=== PATIENT | male | born 1975 | race Caucasian/White ===

== ENCOUNTER 2019-06-23 17:57 | Inpatient (IN) ==
[2019-06-23] MEDS ORDERED: ATIVAN ONE (18:00)
[2019-06-23] MEDS ORDERED: ATIVAN IV ONE (18:12)
[2019-06-23 18:27] LABS: BASO# 0.11 X1000 (0.0-0.2); BASO% 0.9 % (0.0-0.8); EOS# 0.26 X1000 (0.0-0.7); EOS% 2.2 % (0.0-10.0); HEMATOCRIT 49.5 % (42.0-52.0); IMM GRAN# 0.01 X1000 (0.0-0.04); IMM GRAN% 0.1 % (0.0-0.5); LYMPH# 4.89 X1000 (1.2-3.4); LYMPH% 41.8 % (20.5-51.1); MCHC 34.3 g/dL (33-37); MCV 84.5 FL (81-99); MONO# 1.35 X1000 (0.11-0.59); MONO% 11.5 % (1.7-9.3); MPV 10.5 FL (7.4-10.4); NEUT# 5.08 X1000 (1.4-6.5); NEUT% 43.5 % (42.2-75.2); PLT 323 X1000 (130-400); RBC 5.86 XMIL (4.7-6.1); RDW 13.5 % (11.5-14.5)
[2019-06-23 18:45] LABS: ALBUMIN 5.4 g/dL (3.5-5.0); CALCIUM 10.1 mg/dL (8.8-10.2); CREATININE 1.5 mg/dL (0.7-1.2); POTASSIUM 3.4 mmol/L (3.5-5.1); TOTAL BILIRUBIN 0.5 mg/dL (0.20-1.00); TOTAL PROTEIN 9.1 g/dL (6.3-8.3)
--- NOTE | 2019-06-23 18:50 | Diag Imaging Result Doc PS360 ---
EXAM: CHEST-PORTABLE 06/23/2019 HISTORY: seizure TECHNIQUE: Erect AP portable chest at 1734 COMMENT: The inspiration is suboptimal. There is ill-defined opacity in the right lower lobe. IMPRESSION: Poor inspiration. Questionable basilar opacity on the right. Electronically signed by Juan Bar 06/23/2019 6:47 PM
--- NOTE | 2019-06-23 18:55 | PROVIDER DOCUMENTATION ---
This chart was entered by Vika Foreman Scribe, acting as scribe for Flavio James MD. HPI-Neurological Disorder - History of Present Illness-Neuro Severity: reports: moderate Onset/Duration: reports: just prior to arrival Timing: reports: intermittent Context: reports: seizure activity Character of Altered Mental Status: reports: N/A Any recent trauma/injury?: reports: none New weakness or altered sensation location:: reports: none Cognitive Baseline: alert, oriented x3 Gait Baseline: other (rightsided paralysis) Associated Symptoms: reports: seizures Similar Symptoms Previously?: Yes Recently seen or treated by another doctor?: No - Seizure First time to have a seizure?: No Witnessed seizure?: Yes Episode Frequency: rare episodes Status Epilepticus: No Preceding symptoms/context:: active Character of Seizure: reports: lost consciousness, generalized shaking all over, staring Post-ictal Symptoms: reports: none Seizure related injury: none <Flavio James - Last Filed: 06/23/19 18:55> <Jamal Chew - Last Filed: 06/23/19 20:49> - General Chief Complaint: Seizure Stated Complaint: SEIZURE Time Seen by Provider: 06/23/19 18:01 Allergies/Adverse Reactions: Patient Allergies Allergy/AdvReac Type Severity Reaction Status Date / Time No Known Allergies Allergy Verified 06/23/19 18:48 Home Medications: Home Medication List Medication Instructions Recorded Confirmed Last Taken Type Clonazepam [Klonopin] 1 mg PO QHS 05/14/12 06/23/19 09/27/16 History Lamotrigine [Lamictal] 200 mg PO DAILY 05/14/12 06/23/19 09/27/16 History Levetiracetam [Keppra] 750 mg PO QHS #2 tab 07/23/18 06/23/19 Unknown Rx - History of Present Illness-Neuro Nature of Presenting Problem: pt is a 44 yr old male presenting with complaint of seizure onset while eating [place] food tonight. pt admits long hx of seizures, no recent seizures, pt takes Lamictal, Keppra and Klonipin daily. pt also hx of right side paralysis. no injury associated with seizure, no other complaint seizure witnessed while in room for exam, pt had left gaze prior to tonic-clonic activity. (Flavio James) Review of Systems - Adult - REVIEW OF SYSTEMS - ADULT Constitutional: denies: chills, fever Eyes: denies: blurred vision, double vision Ears, Nose, Mouth & Throat: reports: no symptoms reported Cardiovascular: reports: no symptoms reported Respiratory: denies: cough, shortness of breath, wheezing Gastrointestinal: denies: nausea, vomiting Genitourinary: reports: no symptoms reported Musculoskeletal: reports: no symptoms reported Integumentary: reports: no symptoms reported Neurological: reports: seizure. denies: dizziness/vertigo, headache/migraines, syncope Psychiatric: reports: no symptoms reported Endocrine: reports: no symptoms reported Hematologic/Lymphatic: reports: no symptoms reported Allergic/Immunologic: reports: no symptoms reported All Other Systems: Reviewed and Negative <Flavio James - Last Filed: 06/23/19 18:55> Past History - Adult - PAST MEDICAL HISTORY-ADULT Review of Records: reports: Old Records Reviewed, Nursing Assessment Review, Medications Reviewed, Social history reviewed & non-contributory. Major Childhood Illnesses: reports: Polio Cardiovascular: reports: angina, blood clots (Saddle PE) Respiratory: reports: denies history Gastrointestinal: reports: denies history Obstetrical/Gynecological: reports: denies history Genitourinary: reports: denies history Musculoskeletal: reports: other (RUE/RLE weakness with abnormal gait) Neurological: reports: CVA, stroke deficits, Seizures/Epilepsy, other (CP) Endocrine/Immune: reports: denies history Other Conditions: reports: denies history - PRIOR SURGERIES/PROCEDURES Surgical/Procedure History: reports: orthopedic (extremity) - IMMUNIZATION STATUS Childhood Immunizations: See Nurse Assessment Flu Vaccine: See Nurse Assessment - FAMILY HISTORY Family History: reviewed, not pertinent - SOCIAL HISTORY Smoking: quit greater than 1 year Substance Use: denies Living Situation: family <Flavio James - Last Filed: 06/23/19 18:55> Physical Exam- Neurological - Physical Exam-Neuro Initial Vital Signs Reviewed: Yes General Appearance: alert, no apparent distress Eye Exam: bilateral eye: normal inspection, PERRL HENMT: normocephalic/atraumatic, moist mucous membranes Head Injury: no evidence of injury Neck: non-tender, full range of motion, supple, normal inspection Respiratory: lungs clear, normal breath sounds Cardiovascular: normal peripheral pulses, regular rate, rhythm, no edema Abdominal Exam: normal bowel sounds, non tender, soft Lymphatic: no adenopathy Extremity: normal range of motion, 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 Exam: normal hearing, normal speech, PERRL Motor/Sensory: weak motor strength RUE, weak motor strength RLE Neurologic: motor weakness Integumentary: normal color, normal turgor, warm/dry Psych/Mental Status: normal mood/affect - Glascow Coma Scale Best Eye Response: (4) open spontaneously Best Verbal Response: (5) oriented Best Motor Response: (6) obeys commands Total Glascow Score: 15 <Flavio James - Last Filed: 06/23/19 18:55> Progress - PLAN OF CARE/RESULTS Result Diagrams: 06/23/19 18:04 06/23/19 18:04 - REASSESSMENT Reassessment #1 Time Reassessed: 19:42 Status: improving (Seen and examined by me. Case discussed with Dr. James at shift change. Patient states since being on the current regimen of Lamictal and Keppra, today was his first seizure in about 1.5 years. He is still somewhat tacypneic and HR is 104, will check ABG. Awaiting on UA) - XRAY 1 XRAY Study: Chest Impression: Abnormal, See EMR Report ( EXAM: CHEST-PORTABLE 06/23/2019 HISTORY: seizure TECHNIQUE: Erect AP portable chest at 1734 COMMENT: The inspiration is suboptimal. There is ill-defined opacity in the right lower lobe. IMPRESSION: Poor inspiration. Questionable basilar opacity on the right. Electronically signed by Juan Bar 06/23/2019 6:47 PM 06/23/191846 Interpreting Physician: Juan Bar MD Dictated Date/Time: 06/23/191845 cc: Flavio James MD; None,PCP) - CONSULTS/PCP/HOSPITALIST Notification #1 *Consult/PCP/Hospitalist*: [place] Time Discussed: 20:47 Reason/Comments: admit for obs, increase Keppra to 1000 BID Consult Disposition: Admit <Jamal Chew - Last Filed: 06/23/19 20:49> - PLAN OF CARE/RESULTS Progress/Plan/Lab Results: Vital Signs - 8 hr 06/23/19 18:01 Temperature 98.7 F Pulse Rate 124 H Respiratory Rate 33 H Blood Pressure 139/85 O2 Sat by Pulse Oximetry 95 Laboratory Results - last 24 hr 06/23/19 06/23/19 06/23/19 18:04 18:04 18:04 WBC 11.70 H RBC 5.86 Hgb 17.0 Hct 49.5 MCV 84.5 MCH 29.0 MCHC 34.3 RDW Std Deviation 13.5 Plt Count 323 MPV 10.5 H Immature Gran % (Auto) 0.1 Neut % (Auto) 43.5 Lymph % (Auto) 41.8 Emmet % (Auto) 11.5 H Eos % (Auto) 2.2 Baso % (Auto) 0.9 H Immature Gran # (Auto) 0.01 Neut # (Auto) 5.08 Lymph # (Auto) 4.89 H Emmet # (Auto) 1.35 H Eos # (Auto) 0.26 Baso # (Auto) 0.11 Specimen Type Sample Site pH pCO2 pO2 HCO3 Base Excess Oxyhemoglobin ABG O2 Sat (Calculated) ABG O2 Saturation ABG Carboxyhemoglobin ABG Methemoglobin Total Hemoglobin Lactate Liter Flow Blood Gas Modality Sodium 140 Potassium 3.4 L Chloride 93 L Carbon Dioxide 7 L Anion Gap 40 BUN 14 Creatinine 1.5 H Estimated GFR/1.73 m2 51 BUN/Creatinine Ratio 9 Glucose 117 H Calculated Osmolality 281 Calcium 10.1 Magnesium Total Bilirubin 0.50 AST 30 ALT 36 Alkaline Phosphatase 92 Creatine Kinase 126 Troponin T High Sens Total Protein 9.1 H Albumin 5.4 H Globulin 4.0 Albumin/Globulin Ratio 1.0 Urine Source Urine Color Urine Turbidity Urine pH Ur Specific [place] Urine Protein Ur Glucose (Stick) Ur Ketones (Stick) Urine Blood Urine Nitrite Urine Bilirubin Urobilinogen Dipstick Urine Leukocytes Urine Opiates Screen Ur Oxycodone Screen Urine Methadone Screen U Propoxyphene Qual Ur Barbituates Screen Ur Tricyclics Screen Ur Phencyclidine Scrn Ur Amphetamines Screen U Methamphetamines Scrn U Benzodiazepines Scrn Urine Cocaine Screen U Cannabinoids Screen 06/23/19 06/23/19 06/23/19 18:35 19:35 19:35 WBC RBC Hgb Hct MCV MCH MCHC RDW Std Deviation Plt Count MPV Immature Gran % (Auto) Neut % (Auto) Lymph % (Auto) Emmet % (Auto) Eos % (Auto) Baso % (Auto) Immature Gran # (Auto) Neut # (Auto) Lymph # (Auto) Emmet # (Auto) Eos # (Auto) Baso # (Auto) Specimen Type Sample Site pH pCO2 pO2 HCO3 Base Excess Oxyhemoglobin ABG O2 Sat (Calculated) ABG O2 Saturation ABG Carboxyhemoglobin ABG Methemoglobin Total Hemoglobin Lactate Liter Flow Blood Gas Modality Sodium Potassium Chloride Carbon Dioxide Anion Gap BUN Creatinine Estimated GFR/1.73 m2 BUN/Creatinine Ratio Glucose Calculated Osmolality Calcium Magnesium 2.6 Total Bilirubin AST ALT Alkaline Phosphatase Creatine Kinase 126 Troponin T High Sens 7 Total Protein Albumin Globulin Albumin/Globulin Ratio Urine Source Urine Color Urine Turbidity Urine pH Ur Specific [place] Urine Protein Ur Glucose (Stick) Ur Ketones (Stick) Urine Blood Urine Nitrite Urine Bilirubin Urobilinogen Dipstick Urine Leukocytes Urine Opiates Screen Ur Oxycodone Screen Urine Methadone Screen U Propoxyphene Qual Ur Barbituates Screen Ur Tricyclics Screen Ur Phencyclidine Scrn Ur Amphetamines Screen U Methamphetamines Scrn U Benzodiazepines Scrn Urine Cocaine Screen U Cannabinoids Screen 06/23/19 06/23/19 06/23/19 19:40 19:40 20:03 WBC RBC Hgb Hct MCV MCH MCHC RDW Std Deviation Plt Count MPV Immature Gran % (Auto) Neut % (Auto) Lymph % (Auto) Emmet % (Auto) Eos % (Auto) Baso % (Auto) Immature Gran # (Auto) Neut # (Auto) Lymph # (Auto) Emmet # (Auto) Eos # (Auto) Baso # (Auto) Specimen Type ARTERIAL Sample Site R BRACHIAL pH 7.32 L pCO2 29 L pO2 80 HCO3 17.3 L Base Excess -9.6 L Oxyhemoglobin 94.4 L ABG O2 Sat (Calculated) 20.6 ABG O2 Saturation 96.8 ABG Carboxyhemoglobin 1.80 ABG Methemoglobin 0.8 Total Hemoglobin 15.5 Lactate 7.20 H* Liter Flow 5.0 Blood Gas Modality CANNULA Sodium Potassium Chloride Carbon Dioxide Anion Gap BUN Creatinine Estimated GFR/1.73 m2 BUN/Creatinine Ratio Glucose Calculated Osmolality Calcium Magnesium Total Bilirubin AST ALT Alkaline Phosphatase Creatine Kinase Troponin T High Sens Total Protein Albumin Globulin Albumin/Globulin Ratio Urine Source CLEAN CATCH Urine Color YELLOW Urine Turbidity CLEAR Urine pH 5.5 Ur Specific [place] 1.019 Urine Protein 70 A Ur Glucose (Stick) NEGATIVE Ur Ketones (Stick) TRACE A Urine Blood MODERATE A Urine Nitrite NEGATIVE Urine Bilirubin NEGATIVE Urobilinogen Dipstick NORMAL Urine Leukocytes NEGATIVE Urine Opiates Screen NONE DETECTED Ur Oxycodone Screen NONE DETECTED Urine Methadone Screen NONE DETECTED U Propoxyphene Qual NONE DETECTED Ur Barbituates Screen NONE DETECTED Ur Tricyclics Screen NONE DETECTED Ur Phencyclidine Scrn NONE DETECTED Ur Amphetamines Screen NONE DETECTED U Methamphetamines Scrn NONE DETECTED U Benzodiazepines Scrn NONE DETECTED Urine Cocaine Screen NONE DETECTED U Cannabinoids Screen NONE DETECTED Orders Category Date Time Status CHEST-PORTABLE [RAD] Stat Exams 06/23/19 18:[address] HEAD W/O CONTRAST [CT] Stat Exams 06/23/19 20:45 Ordered ABG [RESP] Routine Lab 06/23/19 20:03 Completed CBC WITH DIFF [HEME] Stat Lab 06/23/19 18:04 Completed CK PROFILE [SP CHEM] Stat Lab 06/23/19 18:04 Completed CK TOTAL [CHEM] Stat Lab 06/23/19 19:35 Completed COMPREHENSIVE METABOLIC PANEL [CHEM] Stat Lab 06/23/19 18:04 Completed KEPPRA [BUSTOS] Stat Lab 06/23/19 18:04 Received LAMICTAL [BUSTOS] Stat Lab 06/23/19 18:04 Received MAGNESIUM [CHEM] Stat Lab 06/23/19 19:35 Completed TROPONIN T HIGH SENSITIVITY Stat Lab 06/23/19 18:35 Completed URINALYSIS DIPSTICK ONLY [URINALYSIS] Stat Lab 06/23/19 19:40 Completed URINE DRUG SCREEN PL Stat Lab 06/23/19 19:40 Completed 0.9% Sodium Chloride Inj [Ns] 1,000 ml Med 06/23/19 19:36 Discontinued IV 999 mls/hr Levetiracetam [Keppra] 500 mg Med 06/23/19 20:44 Ordered 0.9% Sodium Chloride Inj [Ns] 100 ml IV NOW Lorazepam [Ativan] Med 06/23/19 18:00 Discontinued 2 mg .ROUTE .STK-MED ONE Lorazepam [Ativan] Med 06/23/19 18:12 Discontinued 2 mg IV NOW ONE Departure <Flavio James - Last Filed: 06/23/19 18:55> - Departure Date of Disposition Decision: 06/23/19 Time of Disposition Decision: 20:48 Certified Medical Emergency: Emergent - Critical Care Note This patient required my direct & personal management of CC.: No <Jamal Chew - Last Filed: 06/23/19 20:49> - Departure DIAGNOSIS: Generalized tonic-clonic seizure, Metabolic acidosis with increased anion gap and accumulation of organic acids Disposition: ADMITTED INPATIENT 09 Condition: Fair Referrals and Follow-Ups: None,PCP [Primary Care Provider] - Attestation - Physician/ PRAKASH Attestation Patient care was provided by Advanced Practice Provider:: No The physician spent face to face time with patient:: Yes Advanced Practice Provider documentation review:: Supervising physician onsite and consulted in the evaluation and care of this patient. The physician did have a face to face encounter with the patient. <Jamal Chew - Last Filed: 06/23/19 20:49> This chart was documented by the indicated scribe, (Vika Foreman, Jayy) and accurately reflects the services I performed and decisions made by me, Flavio James MD, as attested by the provider's signature.
[2019-06-23] MEDS ORDERED: NS 1,000 ML IV ONE ×2 (19:36→21:00)
[2019-06-23 19:46] LABS: URINE SOURCE CLEAN CATCH
[2019-06-23 20:01] LABS: BILIRUBIN URINE NEGATIVE (NEGATIVE); BLOOD URINE MODERATE (NEGATIVE); COLOR YELLOW; GLUCOSE URINE NEGATIVE (NEGATIVE); KETONE URINE TRACE mg/dL (NEGATIVE); LEUKOCYTES URINE NEGATIVE (NEGATIVE); NITRITE URINE NEGATIVE (NEGATIVE); PH URINE 5.5; PROTEIN URINE 70 mg/dL (NEGATIVE); SP GRAVITY URINE 1.019; TURBIDITY URINE CLEAR (CLEAR); UROBILINOGEN URINE NORMAL (NORMAL)
[2019-06-23 20:02] LABS: UR AMPHETAMINES QUAL NONE DETECTED (NONE DETECT); UR BARBITUATES QUAL NONE DETECTED (NONE DETECT); UR BENZODIAZEPIN QUAL NONE DETECTED (NONE DETECT); UR CANNABINOIDS QUAL NONE DETECTED (NONE DETECT); UR COCAINE QUAL NONE DETECTED (NONE DETECT); UR METHADONE QUAL NONE DETECTED (NONE DETECT); UR METHAMPHETAMINE QUAL NONE DETECTED (NONE DETECT); UR OPIATES QUAL NONE DETECTED (NONE DETECT); UR OXYCODONE QUAL NONE DETECTED (NONE DETECT); UR PCP QUAL NONE DETECTED (NONE DETECT); UR PROPOXYPHENE QUAL NONE DETECTED (NONE DETECT); UR TCA QUAL NONE DETECTED (NONE DETECT)
[2019-06-23 20:19] LABS: BE -9.6 mmoll (-3.0-3.0); BLOOD TYPE ARTERIAL; HCO3-(ACT) 17.3 mmoll (20.0-26.0); METHB 0.8 % (0.0-1.5); O2(CT) 20.6 mL/dL (15.0-23.0); O2HB 94.4 % (95.0-99.0); PCO2(98.6) 29 mmHg (35-45); PO2(98.6) 80 mmHg (60-100); SAMPLE BLOOD; SAO2 96.8 % (95.0-100.0); THB 15.5 g/dL (11.5-17.4); pH(98.6) 7.32 (7.35-7.45)
[2019-06-23 20:23] LABS: MODALITY CANNULA
[2019-06-23] MEDS ORDERED: KEPPRA 500 MG in NS 100 ML IV ONE (20:44)
[2019-06-23] MEDS ORDERED: TYLENOL PO PRN (21:00)
--- NOTE | 2019-06-23 21:12 | Diag Imaging Result Doc PS360 ---
EXAM: CT HEAD W/O CONTRAST 06/23/2019 HISTORY: seizure, head injury TECHNIQUE: This exam was performed using automated exposure control, adjustment of mA or kV according to patient size, and/or use of iterative reconstruction technique. COMMENT: There is encephalomalacia with ex vacuo enlargement of the left lateral ventricle. This was also the case at the time the previous examination of 11/19/2018. There is no evidence of bleed or abnormal extra-axial fluid collection. There are some calcifications present in the right centrum semiovale ovale region. This may be due to congenital infection. The visualized paranasal sinuses are clear. The calvarium is intact. IMPRESSION: Stable CT of the head. Electronically signed by Juan Bar 06/23/2019 9:09 PM
[2019-06-23] MEDS ORDERED: ZOFRAN ODT PO PRN (21:17)
[2019-06-23 23:06] LABS: INR 1.01; PROTIME 13.8 Seconds (11.0-16.0); PTT 23.6 Seconds (22.3-41.8)
[2019-06-23 23:34] LABS: CK INDEX 2.1 (0.0-2.5); CK-MB 4.4 ng/mL (0.0-5.0)
[2019-06-24 02:46] LABS: CK INDEX 1.7 (0.0-2.5); CK-MB 5.89 ng/mL (0.0-5.0)
[2019-06-24 05:15] LABS: BASO# 0.02 X1000 (0.0-0.2); BASO% 0.2 % (0.0-0.8); EOS# 0.04 X1000 (0.0-0.7); EOS% 0.4 % (0.0-10.0); HEMATOCRIT 40.6 % (42.0-52.0); IMM GRAN# 0.01 X1000 (0.0-0.04); IMM GRAN% 0.1 % (0.0-0.5); LYMPH# 1.28 X1000 (1.2-3.4); LYMPH% 13.3 % (20.5-51.1); MCHC 34.7 g/dL (33-37); MCV 83.5 FL (81-99); MONO# 1.21 X1000 (0.11-0.59); MONO% 12.6 % (1.7-9.3); NEUT# 7.03 X1000 (1.4-6.5); NEUT% 73.4 % (42.2-75.2); PLT 203 X1000 (130-400); RBC 4.86 XMIL (4.7-6.1); RDW 13.3 % (11.5-14.5); WBC 9.59 X1000 (4.8-10.8)
[2019-06-24 05:24] LABS: HEMOGLOBIN 14.1 g/dL (14.0-18.0)
[2019-06-24 05:36] LABS: CALCIUM 8.5 mg/dL (8.8-10.2); CREATININE 1.3 mg/dL (0.7-1.2); POTASSIUM 3.8 mmol/L (3.5-5.1); TOTAL BILIRUBIN 0.6 mg/dL (0.20-1.00); TOTAL PROTEIN 6.7 g/dL (6.3-8.3)
[2019-06-24] MEDS: KEPPRA PO SCH ×2 (09:38→20:12)
[2019-06-24] MEDS: LAMICTAL PO SCH (09:39)
--- NOTE | 2019-06-24 15:00 | HISTORY AND PHYSICAL ---
CHIEF COMPLAINT: Seizure. HISTORY OF PRESENT ILLNESS: This is a 44-year-old male with chronic seizure disorder, epilepsy since a child. He has not had generalized tonoclonic seizures for many, many years. 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 He has been on Lamictal and Keppra and Klonopin. Again, had a seizure around 4:30, but when he came into the ER it looks like he had another seizure around 6:00. Apparently, this was witnessed. Left gaze and then tonic colonic. He says he has not missed any doses of medications. He had lactic acidosis which is not unexpected. Creatinine was a little bit elevated. Troponin was a little bit elevated too. He did not have any chest pain or anything to that effect. In any case, the patient was admitted for seizures uncontrolled. PAST MEDICAL HISTORY: Again, seizure disorder and that is it. No medical problems. No cardiac problems. PAST SURGICAL HISTORY: He has had vein stripping in his leg. FAMILY HISTORY: Father had diabetes. SOCIAL HISTORY: No tobacco or ethanol. 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 He was actually coming home from work when this happened, but he was not driving. His drives. ALLERGIES: No known drug allergies. MEDICATIONS: He is on Lamictal 200 daily and 750 daily of Keppra and Klonopin 1 b.i.d. REVIEW OF SYSTEMS: Negative for chest pain, palpitation, shortness of breath. No nausea, vomiting, diarrhea. No dysuria. No bleeding, rectal bleeding, GI bleeding. Otherwise, negative times a 10-point review of systems. PHYSICAL EXAMINATION: VITAL SIGNS: Blood pressure 101/75, heart rate 64, respiratory rate 20, temperature 98.1 degrees, 100% on 2 L. CARDIOVASCULAR: Regular rate and rhythm. PULMONARY: Bilateral breath sounds. Clear to auscultation. GASTROINTESTINAL: Soft, nontender, nondistended. Bowel sounds were positive. NEUROLOGICAL: He did have some focal weakness on his right upper and lower extremities, but it was still 4/5. There was no pronator drift. There was no facial asymmetry. Extraocular movements were intact. Basically, cranial nerves II through XII were intact. LABORATORY DATA: Initial white count 11, hemoglobin and hematocrit 17 and 49, platelets 323,000. The pH 7.32, pCO2 of 29, PaO2 of 80. Lactate 7.2, creatinine 1.[address] with [address] baseline[address] Head CT was negative. Chest x-ray was negative. No EKG was obtained. PROBLEM LIST: 1. A 44-year-old male with history of seizure disorder presenting with seizure. We will increase his Keppra to 1 g daily from 750. He seems to have been controlled. He got an extra dose yesterday. We have checked his Lamictal and Keppra levels. However, that probably is not going to come back any time soon unfortunately, but we will follow up on those levels. He sees Dr. Henley in [facility]. We will make sure he has followup from that standpoint. 2. Elevated troponin. Really of undetermined significance. Possibly related to rhabdomyolysis seizure, but that is unusual. I will attempt to get a Cardiology consult and we will see. Again, he is asymptomatic. We cannot pursue an echocardiogram. It is unavailable at this time. But he will need close followup. 3. Acute kidney injury. We will continue hydration and follow. I will probably monitor him 1 more day with the other issues besides the seizure disorder. This is a service admission and it not clear that he has a PCP besides his neurologist. cc: Mateo Kunz MD
[2019-06-24] MEDS: NS 1,000 ML IV SCH (15:36)
--- NOTE | 2019-06-24 16:02 | EKG Report ---
Test Performed on : 06/24/2019 2:54:42 PM Test Reason : elevated troponin Blood Pressure : / mmHG Vent. Rate : 073 BPM Atrial Rate : 073 BPM P-R Int : 148 ms QRS Dur : 080 ms QT Int : 388 ms P-R-T Axes : 050 -11 053 degrees QTc Int : 427 ms Normal sinus rhythm. Normal ECG When compared with ECG of 15-AUG-2015 22:19, Minimal criteria for Anterior infarct are no longer present T wave amplitude has increased in Anterior leads Unconfirmed Result
--- NOTE | 2019-06-24 16:21 | Diag Imaging Result Doc PS360 ---
EXAM: CHEST-2 VIEWS 06/24/2019 HISTORY: hypoxia TECHNIQUE: PA and lateral chest COMMENT: The inspiration is better than on 06/23/2019. There is platelike atelectasis in the left lower lobe. The heart size and pulmonary vascularity are within normal limits. IMPRESSION: Subsegmental atelectasis. Electronically signed by Juan Bar 06/24/2019 4:19 PM
[2019-06-24 16:54] LABS: CK INDEX 1.2 (0.0-2.5); CK-MB 5.95 ng/mL (0.0-5.0)
[2019-06-25] MEDS: NS 1,000 ML IV SCH ×3 (00:15→14:20)
[2019-06-25 04:59] LABS: BASO# 0.02 X1000 (0.0-0.2); BASO% 0.2 % (0.0-0.8); EOS# 0.09 X1000 (0.0-0.7); HEMATOCRIT 40.3 % (42.0-52.0); HEMOGLOBIN 14.1 g/dL (14.0-18.0); IMM GRAN# 0.01 X1000 (0.0-0.04); IMM GRAN% 0.1 % (0.0-0.5); LYMPH# 1.72 X1000 (1.2-3.4); LYMPH% 19.8 % (20.5-51.1); MCH 29.3 PG (27-31); MCV 83.8 FL (81-99); MONO# 0.96 X1000 (0.11-0.59); MONO% 11.1 % (1.7-9.3); MPV 9.8 FL (7.4-10.4); NEUT# 5.87 X1000 (1.4-6.5); NEUT% 67.8 % (42.2-75.2); PLT 193 X1000 (130-400); RBC 4.81 XMIL (4.7-6.1); RDW 13.5 % (11.5-14.5); WBC 8.67 X1000 (4.8-10.8)
[2019-06-25 05:20] LABS: ALBUMIN 3.7 g/dL (3.5-5.0); CALCIUM 8.4 mg/dL (8.8-10.2); CREATININE 1.3 mg/dL (0.7-1.2); POTASSIUM 3.6 mmol/L (3.5-5.1); TOTAL BILIRUBIN 0.7 mg/dL (0.20-1.00); TOTAL PROTEIN 6.3 g/dL (6.3-8.3)
[2019-06-25] MEDS: KEPPRA PO SCH (08:24)
[2019-06-25] MEDS: LAMICTAL PO SCH (08:24)
--- NOTE | 2019-06-25 12:30 | DISCHARGE SUMMARY ---
ADMISSION DATE: 06/23/2019 DISCHARGE DATE: DISCHARGE DIAGNOSES: 1. Seizure, generalized tonic-clonic seizure. 2. Elevated troponin, but in the setting of seizure and mild rhabdomyolysis. 3. Acute on chronic renal insufficiency. HISTORY AND HOSPITAL COURSE: This is a 44-year-old male who came in for seizure. He has a longstanding seizure disorder, epilepsy. He is on Lamictal, Keppra, and Klonopin. That is his only active medical problem. He came in with lactic acidosis. He had several episodes of seizure. His Keppra was adjusted, and did not have any further seizures. Head CT was negative. There is encephalomalacia with ex vacuo enlargement of the lateral ventricle, but that is unchanged since 2019. In any case, he stabilized. Chest x-ray showed some subsegmental atelectasis, but he stabilized, did not have any further seizure activity. He did have a mild elevation in his troponin, which was 120. Repeat with 73. Interestingly enough though, he had a normal troponin when he came in, and then when it was rechecked, it went up to 120, and then up to 73. His CK and MB were positive, but the index was negative. PLAN: I discussed the case with Dr. Wharton, who felt that EKG was normal, he was asymptomatic, so I will, just to be on the safe side, plan to have him follow up. I think he needs a PCP. We are going to do an outpatient stress test next week just to make sure there is nothing abnormal there. DISCHARGE MEDICATIONS: Klonopin 1 b.i.d., Lamictal ER 200 daily, Keppra was increased to 1000 mg daily extended-release (he had previously been on 750). He has been on 1000 twice a day here, but that is the short-acting. DISCHARGE CONDITION: Stable. Will continue to follow. TIME SPENT: A 32-minute discharge. cc: Mateo Kunz MD
[2019-06-25 13:00] VITALS: BP 107/63
== END 2019-06-25 15:20 | disposition home or self-care (01) | DRG 101 ==
LOC: P.ED 17:57 → INTOOBSV 21:32 → P.MEDSURG 21:32
PROVIDERS: ATTEND Internal Medicine